=== PATIENT | female | born 1980 | race Caucasian/White ===

== ENCOUNTER 2023-06-07 19:35 | Emergency (ER) | payer OTHER, SELFPAY ==
[2023-06-07 19:49] VITALS: BP 151/83; PULSE 82; RESP 16; TEMP 36.5; O2SAT 100
--- NOTE | 2023-06-07 19:55 | ED.URI ---
HPI - URI/Sore Throat General Chief Complaint: Upper Respiratory Infection Stated Complaint: Cough Time Seen by Provider: 06/07/23 19:55 Source: patient Mode of arrival: ambulatory Limitations: no limitations History of Present Illness HPI Narrative: 42-year-old female presents with complaint of cough since April 30. Reports sore throat for the past 2 weeks. Did a telehealth visit was given amoxicillin for strep throat. Was not tested for strep throat. States she just finished antibiotic and has sore throat again. Continues to have dry hacking cough. Denies chest pain and shortness of breath. Afebrile. Using albuterol inhaler with no relief. All systems reviewed and negative except as noted above. Related Data Home Medications Medication Instructions Recorded Confirmed albuterol sulfate 90 mcg/actuation inhalation 06/07/23 aerosol inhaler Allergies Allergy/AdvReac Type Severity Reaction Status Date / Time No Known Allergies Allergy Unverified 04/01/18 16:24 Review of Systems Review of Systems: CONSTITUTIONAL: Denies fever, chills, or sweats. EYES: Denies visual changes, redness, or discharge. ENT: Denies rhinorrhea, congestion . Reports sore throat, postnasal drainage. Denies otalgia. CARDIOVASCULAR: Denies chest pain, palpitations, or edema. RESPIRATORY: reports cough. Denies dyspnea. GASTROINTESTINAL: Denies abdominal pain, nausea, vomiting, or diarrhea. GENITOURINARY: Denies dysuria or hematuria. SKIN: Denies rash or itching. MUSCULOSKELETAL: Denies back pain, joint pain, or myalgia. NEUROLOGIC: Denies headache, numbness, or weakness. PSYCHIATRIC: Denies anxiety or depression. All other systems reviewed are negative, except as documented in HPI. [facility] Family History Family History (Updated 02/15/14 @ 07:13 by DOCTOR UNKNOWN) Father Hypertension Family history of heart disease in male family member before age 55 Mother Cerebrovascular accident Grandparent Family history of coronary artery disease Social History Social History Smoking status: Never smoker Alcohol intake: current Comments At time of signature, agree with nursing past medical, surgical, social and family history. There is no relevant family history pertinent to the presenting complaint. Exam Narrative: GENERAL: This is a well-nourished, well-developed patient, in no apparent distress. HEAD: normocephalic, atraumatic. EYES: PERRL. Sclera clear/white. Vision is grossly intact. EARS: External ears normal, auditory canals clear and without drainage, TMs normal without perforation. Hearing grossly intact. NOSE: External nose normal with no obvious nasal discharge, nares without redness, no rhinorrhea. THROAT: Mucous membranes moist, tonsils 1+ bilaterally no erythema or exudates. NECK: Neck supple, non-tender without lymphadenopathy, masses or thyromegaly. CARDIOVASCULAR: Regular rate and rhythm without murmurs, gallops, or rubs. RESPIRATORY: Decreased throughout all lung duvall without wheezing. Breath sounds equal bilaterally. No rales, or rhonchi. SKIN: warm, Dry, intact with no suspicious lesions or rash, good texture and turgor. NEURO: awake, alert, and oriented to person, place and time. There were no obvious focal neurologic abnormalities. EXTREMITIES: No joint tenderness, effusion, or edema noted. Course Course Level of Care: Express Care Visit Vital Signs Vital signs: Vital Signs Temperature 36.5 C 06/07/23 19:49 Pulse Rate 82 06/07/23 19:49 Respiratory Rate 16 06/07/23 19:49 Blood Pressure 151/83 H 06/07/23 19:49 Pulse Oximetry 100 06/07/23 19:49 Oxygen Delivery Room Air 06/07/23 19:49 Temperature 36.5 C 06/07/23 19:49 Pulse Rate 82 06/07/23 19:49 Respiratory Rate 16 06/07/23 19:49 Blood Pressure 151/83 H 06/07/23 19:49 Pulse Oximetry 100 06/07/23 19:49 Oxygen Delivery Room Air 06/07/23 19:49 Reviewed MDM - URI/Sore Th
== END 2023-06-07 20:10 | disposition home or self-care (01) ==
PROVIDERS: Emergency Provider Nurse Practitioner Family; PCP Internal Medicine
DX: J20.8 Acute bronchitis due to other specified organisms (principal)
CPT/HCPCS: 87081; 87147; 87880; 99213; G0463

== ENCOUNTER 2023-12-20 06:57 | Day surgery (SDC) | payer OTHER, SELFPAY ==
--- NOTE | 2023-12-19 22:12 | PM.HPGS ---
History of Present Illness History of Present Illness Consent: Risks, benefits, and alternatives have been discussed and questions answered. Patient agrees to proceed with procedure. Chief complaint: Hemorrhage of anus and rectum Narrative: Leah Echevarria is a 43 year old female with blood in stool. Review of Systems Review of Systems: All systems reviewed & are unremarkable except as noted in HPI and below PMFSH Family History Family History Father Hypertension Family history of heart disease in male family member before age 55 Mother Cerebrovascular accident Grandparent Family history of coronary artery disease Social History Social History Smoking status: Never smoker Alcohol intake: current Living arrangements: with family Meds Home Medications and Allergies Home Medications Medication Instructions Recorded Confirmed Type albuterol sulfate 90 mcg/actuation 1 puff inhalation DIRECTED 06/07/23 12/20/23 History aerosol inhaler alprazolam 1 tab-cap PO DIRECTED 12/13/23 12/20/23 History semaglutide 0.25 mg or 0.5 mg (2 0.25 mg subcut DIRECTED 12/13/23 12/20/23 History mg/3 mL) subcutaneous pen injector (Ozempic) Allergies Allergy/AdvReac Type Severity Reaction Status Date / Time No Known Allergies Allergy Verified 12/20/23 07:19 Exam Resp: Auscultation: clear to auscultation bilaterally Cardio: Rate: regular rate Rhythm: regular rhythm GI: GI Palp: Yes Soft to palpation and No Tenderness to palpation present (GI) Assessment and Plan Assessment and plan (1) Blood in stool: Code(s): K92.1 - Melena Status: Acute Assessment and Plan: Colonoscopy with possible biopsy or polypectomy or cautery or injection of substances.
[2023-12-20 07:28] VITALS: BMI 36.4
[2023-12-20 07:30] VITALS: BP 115/85; PULSE 72; RESP 18; TEMP 36.6; O2SAT 100
--- NOTE | 2023-12-20 08:10 | P.PNAN_ITS ---
Anes - Initial Pre Proc Eval Procedure: Operation Date: 12/20/23 08:30 Proposed Procedures p Diagnostic Colonoscopy - Leonardo Hughes MD Date/Time: 12/20/23 08:10 Surgeon: Leonardo Hughes MD Pre Op Diagnosis: Hemorrhage of anus and rectum Patient Data Age: 43 Gender: F Height: 1.7 m Weight: 105.6 kg Last Vital Signs Temp 36.6 C 12/20/23 07:30 Pulse 72 12/20/23 07:30 Resp 18 12/20/23 07:30 BP 115/85 12/20/23 07:30 Pulse Ox 100 12/20/23 07:30 O2 Del Method Room Air 12/20/23 07:30 Allergies Allergy/AdvReac Type Severity Reaction Status Date / Time No Known Allergies Allergy Verified 12/20/23 07:19 Home Medications Medication Instructions Recorded Confirmed Type albuterol sulfate 90 mcg/actuation 1 puff inhalation DIRECTED 06/07/23 12/20/23 History aerosol inhaler alprazolam 1 tab-cap PO DIRECTED 12/13/23 12/20/23 History semaglutide 0.25 mg or 0.5 mg (2 0.25 mg subcut DIRECTED 12/13/23 12/20/23 History mg/3 mL) subcutaneous pen injector (Ozempic) Patient hx anesthesia problems: none Family hx anesthesia problems: none Results Review: All pre-operative results and documents have been reviewed as part of the pre- operative evaluation. [facility] Family History Family History Father Hypertension Family history of heart disease in male family member before age 55 Mother Cerebrovascular accident Grandparent Family history of coronary artery disease Social History Social History Smoking status: Never smoker Alcohol intake: current Living arrangements: with family Anes - Eval Final PreProcedure Day of Procedure 12/20/23 08:10 Patient weight: obese Heart: regular rate and rhythm Lungs: clear to auscultation Airway: Mallampati scale class II Neurological: alert and oriented Last oral intake: >/= 8 hours ASA classification: III Emergent: no Anesthetic plan: proceed Anesthesia type and monitoring: general GIVS and standard monitoring Results Review: All pre-operative results and documents have been reviewed as part of the pre- operative evaluation. Informed Consent: The patient's anesthetic plan and its attendant risks and benefits were discussed with the patient/family/POA. Questions were solicited and answers provided to the satisfaction of the patient/family/POA.
[2023-12-20] MEDS: LACTATED RINGERS 1,000 ML 150 ML IV CONT (08:34)
[2023-12-20 09:01] VITALS: BP 97/60; PULSE 87; RESP 16; O2SAT 99
[2023-12-20 09:11] VITALS: BP 94/67; PULSE 77; RESP 16; O2SAT 100
--- NOTE | 2023-12-20 09:17 | WPDANESPN ---
Anes - Prog Note Post-Op Date/Time: 12/20/23 09:17 Cardiovascular status: normal Respiratory status: normal Airway patency: baseline Mental status: baseline Vital Signs: Last Vital Signs Temp 36.6 C 12/20/23 07:30 Pulse 87 12/20/23 09:01 Resp 16 12/20/23 09:01 BP 97/60 L 12/20/23 09:01 Pulse Ox 99 12/20/23 09:01 O2 Del Method Room Air 12/20/23 09:01 Pain Score (VAS): 0 I/O: Intake & Output 12/19/23 12/20/23 12/20/23 23:59 07:59 15:59 Intake Total 200 Balance 200 Patient Feedback: Patient satisfied with anesthetic care.
[2023-12-20 09:21] VITALS: BP 98/62; PULSE 73; RESP 16; O2SAT 100
== END 2023-12-20 09:26 | disposition home or self-care (01) ==
PROVIDERS: PCP Physician Assistant; Visit Provider Internal Medicine Gastroenterology
PROC: 0DJD8ZZ Inspection of Lower Intestinal Tract, Via Natural or Artificial Opening Endoscopic (ICD-10-PCS; CPT 45378; principal; 2023-12-20 08:30)
DX: K92.1 Melena (principal)
CPT/HCPCS: 45378

== ENCOUNTER 2024-03-29 10:27 | Outpatient (CLI) | payer OTHER, SELFPAY ==
--- NOTE | ~2024-03-29 | MMUS_ITS ---
EXAMINATION: MM diagnostic tyson BI w piotr, US breast LT limited HISTORY: Palpable left breast abnormality TECHNIQUE: Additional 3-D tomosynthesis images of the breasts were performed and synthetic 2-D images were generated. CAD analysis was submitted and interpreted. High resolution Limited left breast ultr asound was performed. COMPARISON: None BREAST PARENCHYMAL COMPOSITION: Not Dense: The breasts are almost entirely fatty. FINDINGS: MAMMOGRAPHIC FINDINGS: There are no suspicious masses, calcifications or architectural distortion in either breast to sugges t malignancy. ULTRASOUND: Limited left breast ultrasound: Normal heterogeneous echotexture without focal solid or cystic mass. IMPRESSION: 1. No evidence for malignancy in either breast. 2. Routine yearly screening mammogram and regular clinical breast examination are recommended. BI-RADS CATEGORY 1 - NEGATIVE Reviewed, dictated and finalized at location B. IMPRESSION: 1. No evidence for malignancy in either breast. 2. Routine yearly screening mammogram and regular clinical breast examination a re recommended. BI-RADS CATEGORY 1 - NEGATIVE
== END 2024-03-29 10:28 | disposition home or self-care (01) ==
LOC: ANHIMG 10:29
PROVIDERS: PCP Physician Assistant; Visit Provider Obstetrics & Gynecology
DX: R92.8 Other abnormal and inconclusive findings on diagnostic imaging of breast (principal)
CPT/HCPCS: 76642; 77062; 77066; G0279

== ENCOUNTER 2025-04-02 08:53 | Outpatient (CLI) | payer OTHER, SELFPAY ==
--- NOTE | ~2025-04-02 | US_ITS ---
EXAMINATION: US thyroid DATE: 04/02/2025 09:22 INDICATION: Nontoxic thyroid nodule TECHNIQUE: Multiple ultrasound images of the thyroid were obtained. COMPARISON: None. FINDINGS: The right thyroid lobe measures 5.5 x 2.0 x 1.3 cm. The left thyroid lobe measures 4.9 x 1.3 x 1.0 cm. Likely benign 4 mm anechoic Ti RADS 1 nodule at the left thyroid lobe. No other thyroid nodules identified. There is normal echotexture, echogenicity and vascular flow throughout the thyroid gland. IMPRESSION: 1. Likely benign 4 mm TI RADS 1 left thyroid nodule which requires no further follow-up. Reviewed, dictated and finalized at location A. IMPRESSION: 1. Likely benign 4 mm TI RADS 1 left thyroid nodule which requires no further f ollow-up.
== END 2025-04-02 08:54 | disposition home or self-care (01) ==
LOC: GOSHIMG 08:54
DX: E04.1 Nontoxic single thyroid nodule (principal)
CPT/HCPCS: 76536